=== PATIENT | male | born 1950 | race American Indian/Alaskan Native ===

== ENCOUNTER 2019-01-21 23:57 | Emergency (ER) | payer MEDICARE ==
[2019-01-22] MEDS ORDERED: KETOROLAC 30 MG/1 ML INJ IM ONE (02:27)
[2019-01-22] MEDS ORDERED: DEXAMETHASONE 4 MG TAB PO ONE (02:27)
--- NOTE | 2019-01-22 02:32 | Emergency Department Report ---
ED General Adult HPI - General Chief complaint: Extremity Problem,Nontraumatic Stated complaint: LEFT KNEE PAIN Time Seen by Provider: 01/22/19 01:46 Source: patient Mode of arrival: Ambulatory Limitations: No Limitations - History of Present Illness Initial comments: 68-year-old -Polish male patient with history of hypertension complains of left knee pain 1 week. He denies any injury. He rates his pain as a 7/10 in severity and states it worsens with ambulation and bending the knee. Patient states he was recently diagnosed with gout one month ago when he had left toe pain. He states the knee is swollen and feels hot. Denies any fever/chills/sweats or history of cancer. - Related Data Allergies Allergy/AdvReac Type Severity Reaction Status Date / Time lisinopril Allergy Hives Verified 01/22/19 00:15 ED Review of Systems ROS: Stated complaint: LEFT KNEE PAIN Other details as noted in HPI ED Past Medical Hx - Past Medical History Previous Medical History?: Yes Hx Hypertension: Yes Hx Heart Attack/AMI: Yes (cardiax stents x2?) Hx Seizures: Yes Additional medical history: gout - Surgical History Past Surgical History?: No - Social History Smoking Status: Never Smoker ED Physical Exam - General Limitations: No Limitations ED Course Vital Signs 01/22/19 01/22/19 00:05 00:06 Temperature 97 F L 97.9 F Pulse Rate 140 H 139 H Respiratory 18 18 Rate Blood Pressure 119/91 119/91 O2 Sat by Pulse 100 96 Oximetry Critical care attestation.: If time is entered above; I have spent that time in minutes in the direct care of this critically ill patient, excluding procedure time. ED Disposition Condition: Stable
--- NOTE | 2019-01-22 03:02 | XRay Report ---
CHEST 2 VIEWS INDICATION / CLINICAL INFORMATION: Tachycardia. History of hypertension. COMPARISON: None available. FINDINGS: SUPPORT DEVICES: None. HEART / MEDIASTINUM: No significant abnormality. LUNGS / PLEURA: No significant pulmonary or pleural abnormality. No pneumothorax. ADDITIONAL FINDINGS: No significant additional findings. IMPRESSION: 1. No acute abnormality of the chest. Signer Name: Iván Mace MD Signed: 01/22/2019 2:57 AM Workstation Name: [id number]
--- NOTE | 2019-01-22 03:03 | XRay Report ---
LEFT KNEE 3 VIEWS INDICATION / CLINICAL INFORMATION: Medial left knee pain without a known injury. History of gout. COMPARISON: None available. FINDINGS: BONES and JOINT(S): No acute fracture or subluxation. There is mild to moderate tricompartmental oste oarthritis. SOFT TISSUES: No acute abnormality. There is mild popliteal atherosclerosis. ADDITIONAL FINDINGS: None. IMPRESSION: 1. No acute findings. 2. Mild to moderate osteoarthritis. Signer Name: Iván Mace MD Signed: 01/22/2019 2:59 AM Workstation Name: [email or web address]
[2019-01-22 03:19] LABS: Basophils % (Auto) 0.4 % (0.0-1.8); Eosinophils # (Auto) 0.2 K/mm3 (0.0-0.4); Eosinophils % (Auto) 3.9 % (0.0-4.3); Lymphocytes # (Auto) 0.8 K/mm3 (1.2-5.4); Lymphocytes % (Auto) 14.8 % (13.4-35.0); Mean Corpuscular HGB Conc 36 % (32-34); Mean Corpuscular Volume 90 fl (84-94); Monocytes # (Auto) 0.6 K/mm3 (0.0-0.8); Monocytes % (Auto) 10.7 % (0.0-7.3); Platelet Count 244 K/mm3 (140-440); Red Blood Count 4.69 M/mm3 (3.65-5.03); Red Cell Distribution Width 15.1 % (13.2-15.2)
[2019-01-22 03:43] LABS: Alanine Aminotransferase 18 units/L (7-56); Albumin 4.2 g/dL (3.9-5); BUN/Creatinine Ratio 12; Blood Urea Nitrogen 14 mg/dL (9-20); Calcium 8.8 mg/dL (8.4-10.2); Hemolysis Index 7
--- NOTE | 2019-01-22 06:51 | Emergency Department Report ---
ED General Adult HPI - General Chief complaint: Extremity Problem,Nontraumatic Stated complaint: LEFT KNEE PAIN Time Seen by Provider: 01/22/19 01:46 Source: patient, RN notes reviewed Mode of arrival: Ambulatory Limitations: No Limitations - History of Present Illness Initial comments: Primary care Dr.: Dr. Mancilla Cardiology: [facility] Past medical history: Hypertension, heart disease with stent, question A. fib, on anticoagulation The patient is a 68-year-old gentleman. He is not known to this provider previously. He presents the ER today with a complaint of nontraumatic left sided knee pain. The pain is aching and throbbing. His primary care doctor prescribed him prednisone recently. The pain increases with palpation and decreases with rest. It does not radiate anywhere. He makes no complaint of headache, neck pain, chest pain, abdominal pain, shortness of breath. The patient indicates she's been compliant with his medications. He denies hematemesis and bright red blood per rectum. He denies additional complaints. -: Gradual, days(s) Location: left, lower extremity Radiation: non-radiation Severity scale (0 -10): 5 Quality: aching Improves with: other Worsens with: other - Related Data Home Medications Medication Instructions Recorded Confirmed Last Taken Aspirin [Aspirin BABY CHEW TAB] 81 mg PO QDAY 01/22/19 01/22/19 Unknown AtorvaSTATin [Lipitor] 20 mg PO QHS 01/22/19 01/22/19 Unknown Digoxin [Lanoxin] 125 mcg PO DAILY 01/22/19 01/22/19 1 Day Ago ~01/21/19 Folic Acid 1 tab PO QDAY 01/22/19 01/22/19 Unknown Levocetirizine Dihydrochloride 5 mg PO DAILY 01/22/19 01/22/19 1 Day Ago [Xyzal] ~01/21/19 Losartan Potassium 50 mg PO QDAY 01/22/19 01/22/19 01/21/19 Pantoprazole [Protonix] 40 mg PO QDAY 01/22/19 01/22/19 1 Day Ago ~01/21/19 Sertraline [Zoloft] 100 mg PO QDAY 01/22/19 01/22/19 Unknown Sertraline [Zoloft] 100 mg PO QDAY 01/22/19 01/22/19 1 Day Ago ~01/21/19 Warfarin [Coumadin] 5 mg PO QDAY 01/22/19 01/22/19 Unknown carvediloL [Coreg] 25 mg PO BID 01/22/19 01/22/19 Unknown levETIRAcetam [Keppra TAB] 500 mg PO BID 01/22/19 01/22/19 1 Day Ago ~01/21/19 Allergies Allergy/AdvReac Type Severity Reaction Status Date / Time lisinopril Allergy Hives Verified 01/22/19 00:15 ED Review of Systems ROS: Stated complaint: LEFT KNEE PAIN Other details as noted in HPI Constitutional: denies: fever ENT: denies: congestion Respiratory: denies: wheezing Cardiovascular: denies: chest pain, syncope Gastrointestinal: denies: abdominal pain, nausea, vomiting Genitourinary: denies: dysuria Musculoskeletal: arthralgia, myalgia Skin: denies: lesions Neurological: denies: weakness Hematological/Lymphatic: denies: easy bleeding ED Past Medical Hx - Past Medical History Previous Medical History?: Yes Hx Hypertension: Yes Hx Heart Attack/AMI: Yes (cardiax stents x2?) Hx Seizures: Yes Additional medical history: gout - Surgical History Past Surgical History?: No - Social History Smoking Status: Never Smoker - Medications Home Medications: Home Medications Medication Instructions Recorded Confirmed Last Taken Type Aspirin [Aspirin BABY CHEW TAB] 81 mg PO QDAY 01/22/19 01/22/19 Unknown History AtorvaSTATin [Lipitor] 20 mg PO QHS 01/22/19 01/22/19 Unknown History Digoxin [Lanoxin] 125 mcg PO DAILY 01/22/19 01/22/19 1 Day Ago History ~01/21/19 Folic Acid 1 tab PO QDAY 01/22/19 01/22/19 Unknown History Levocetirizine Dihydrochloride 5 mg PO DAILY 01/22/19 01/22/19 1 Day Ago History [Xyzal] ~01/21/19 Losartan Potassium 50 mg PO QDAY 01/22/19 01/22/19 01/21/19 History Pantoprazole [Protonix] 40 mg PO QDAY 01/22/19 01/22/19 1 Day Ago History ~01/21/19 Sertraline [Zoloft] 100 mg PO QDAY 01/22/19 01/22/19 Unknown History Sertraline [Zoloft] 100 mg PO QDAY 01/22/19 01/22/19 1 Day Ago History ~01/21/19 Warfarin [Coumadin] 5 mg PO QDAY 01/22/19 01/22/19 Unknown History carvediloL [Coreg] 25 mg PO BID 01/22/19 01/22/19 Unknown History levETIRAcetam [Keppra TAB] 500 mg PO BID 01/22/19 01/22/19 1 Day Ago History ~01/21/19 ED Physical Exam - General Limitations: No Limitations General appearance: alert, in no apparent distress, obese - Head Head exam: Present: atraumatic, normocephalic - Eye Eye exam: Present: normal appearance, EOMI. Absent: nystagmus - ENT ENT exam: Present: normal exam, normal orophraynx, mucous membranes moist, normal external ear exam - Neck Neck exam: Present: normal inspection, full ROM. Absent: tenderness, meningismus - Respiratory Respiratory exam: Present: normal lung sounds bilaterally. Absent: respiratory distress - Cardiovascular Cardiovascular Exam: Present: tachycardia, normal heart sounds. Absent: normal rhythm, bradycardia, systolic murmur, diastolic murmur, rubs, gallop - GI/Abdominal GI/Abdominal exam: Present: soft. Absent: distended, tenderness, guarding, r ebound, rigid, pulsatile mass - Rectal Rectal exam: Present: deferred - Extremities Exam Extremities exam: Present: normal inspection, full ROM, other (2+ pulses noted in the bilateral upper and lower extremities. There is no palpable cord. negative Homans sign. Muscular compartments are soft. The pelvis is stable.). Absent: pedal edema, calf tenderness - Back Exam Back exam: Present: normal inspection. Absent: tenderness, CVA tenderness (R), CVA tenderness (L), paraspinal tenderness, vertebral tenderness - Neurological Exam Neurological exam: Present: alert, other (there is no facial droop. The tongue is midline. Extraocular movements are intact bilaterally. There is 5/5 strength bilateral upper and lower extremities. Sensation is intact to light touch bilateral upper and lower extremities. The patient is speaking in full sentences.). Absent: motor sensory deficit - Psychiatric Psychiatric exam: Present: anxious - Skin Skin exam: Present: warm, dry, intact, normal color. Absent: rash ED Course Vital Signs 01/22/19 01/22/19 01/22/19 00:05 00:06 02:37 Temperature 97 F L 97.9 F Pulse Rate 140 H 139 H Respiratory 18 18 18 Rate Blood Pressure 119/91 119/91 Blood Pressure [Right] O2 Sat by Pulse 100 96 Oximetry 01/22/19 01/22/19 01/22/19 02:41 04:15 05:36 Temperature Pulse Rate 135 H 133 H 132 H Respiratory 18 18 16 Rate Blood Pressure 136/96 Blood Pressure 149/105 [Right] O2 Sat by Pulse 97 96 96 Oximetry 01/22/19 01/22/19 01/22/19 07:05 08:10 08:33 Temperature 98.6 F Pulse Rate 133 H 133 H 95 H Respiratory 15 16 Rate Blood Pressure Blood Pressure 150/101 118/82 [Right] O2 Sat by Pulse 97 97 Oximetry 01/22/19 09:11 Temperature Pulse Rate 132 H Respiratory Rate Blood Pressure Blood Pressure [Right] O2 Sat by Pulse Oximetry - Reevaluation(s) Reevaluation #1: 01/22/19 08:13 Differential diagnosis, including but not limited to: Left knee arthritis, musculoskeletal pain, incidental tachycardia; atrial tachycardia versus flutter with 2-1 conduction Assessment and plan: 68-year-old gentleman isolated complaint of nontraumatic left sided knee pain, appears to be arthritic in nature. He is found to be tachycardic upon presentation. His EKG shows an irregularly regular rhythm, but is tachycardic, persistently in the low 130s rate-lopez, suspect atrial tachycardia versus a flutter with 2:1 block. Laboratory studies are reviewed and appreciated. We will discuss with cardiology, and will likely administer empiric dose of diltiazem for rate control. We will reassess. Reevaluation #2: 01/22/19 08:15 Patient given steroids and Toradol prior to my personal evaluation. Reevaluation #3: 01/22/19 09:19 Repeat EKG suggests a flutter, 2-1 conduction, without evidence of ST elevation myocardial infarction. Initial rhythm strip and EKG transmitted to our consulting truss puller helper, Dr. Craft, who advises that rhythm is most likely flutter with 2:1 conduction, as initially suspected. Patient given 20 mg of diltiazem, heart rate temporarily slowed down, and then went back up, given an additional 30 mg of diltiazem, now, heart rate in the 70s, flutter, with variable conduction. He is in no acute distress at this time. He reports a chronic history of flutter/fib and is on therapeutic anticoagulation. Weightbearing as tolerated for left knee pain. He will need to follow up with his outpatient primary care doctor or truss puller helper for his chronic rhythm issues. He is resting comfortably at this time and in no acute distress. He is suitable for discharge. Reevaluation #4: 01/22/19 09:23 Please note that a troponin was sent prior to my personal evaluation. He suffered the current history and physical, do not suspect acute coronary syndrome, and I personally would not have initiated an ACS risk stratification. He can follow up with his outpatient primary care doctor or truss puller helper. In addition, the decision to administer intramuscular ketorolac was made before I personally evaluated the patient, and before I arrived to start my shift in the emergency room. This decision was not specifically discussed with me ED Medical Decision Making - Lab Data Result diagrams: 01/22/19 02:51 01/22/19 02:51 Vital Signs 01/22/19 01/22/19 01/22/19 00:05 00:06 02:37 Temperature 97 F L 97.9 F Pulse Rate 140 H 139 H Respiratory 18 18 18 Rate Blood Pressure 119/91 119/91 Blood Pressure [Right] O2 Sat by Pulse 100 96 Oximetry 01/22/19 01/22/19 01/22/19 02:41 04:15 05:36 Temperature Pulse Rate 135 H 133 H 132 H Respiratory 18 18 16 Rate Blood Pressure 136/96 Blood Pressure 149/105 [Right] O2 Sat by Pulse 97 96 96 Oximetry Lab Results 01/22/19 01/22/19 01/22/19 Range/Units 02:51 02:51 02:51 WBC 5.2 (4.5-11.0) K/mm3 RBC 4.69 (3.65-5.03) M/mm3 Hgb 15.0 (11.8-15.2) gm/dl Hct 42.0 (35.5-45.6) % MCV 90 (84-94) fl MCH 32 (28-32) pg MCHC 36 H (32-34) % RDW 15.1 (13.2-15.2) % Plt Count 244 (140-440) K/mm3 Lymph % (Auto) 14.8 (13.4-35.0) % Nicholas % (Auto) 10.7 H (0.0-7.3) % Eos % (Auto) 3.9 (0.0-4.3) % Baso % (Auto) 0.4 (0.0-1.8) % Lymph # 0.8 L (1.2-5.4) K/mm3 Nicholas # 0.6 (0.0-0.8) K/mm3 Eos # 0.2 (0.0-0.4) K/mm3 Baso # 0.0 (0.0-0.1) K/mm3 Seg Neutrophils % 70.2 H (40.0-70.0) % Seg Neutrophils # 3.7 (1.8-7.7) K/mm3 PT (12.2-14.9) Sec. INR (0.87-1.13) APTT (24.2-36.6) Sec. Sodium 139 (137-145) mmol/L Potassium 4.3 (3.6-5.0) mmol/L Chloride 97.7 L (98-107) mmol/L Carbon Dioxide 22 (22-30) mmol/L Anion Gap 24 mmol/L BUN 14 (9-20) mg/dL Creatinine 1.2 (0.8-1.5) mg/dL Estimated GFR > 60 ml/min BUN/Creatinine Ratio 12 % Glucose 115 H (75-100) mg/dL Calcium 8.8 (8.4-10.2) mg/dL Magnesium 1.60 L (1.7-2.3) mg/dL Total Bilirubin 0.70 (0.1-1.2) mg/dL AST 21 (5-40) units/L ALT 18 (7-56) units/L Alkaline Phosphatase 123 (35-129) units/L Total Creatine Kinase 235 H (55-170) units/L Troponin T < 0.010 (0.00-0.029) ng/mL Total Protein 7.9 (6.3-8.2) g/dL Albumin 4.2 (3.9-5) g/dL Albumin/Globulin Ratio 1.1 % TSH (0.270-4.200) mlU/mL Free T4 (0.76-1.46) ng/dL Digoxin (0.9-2.0) ng/mL 01/22/19 01/22/19 01/22/19 Range/Units 06:55 06:55 06:55 WBC (4.5-11.0) K/mm3 RBC (3.65-5.03) M/mm3 Hgb (11.8-15.2) gm/dl Hct (35.5-45.6) % MCV (84-94) fl MCH (28-32) pg MCHC (32-34) % RDW (13.2-15.2) % Plt Count (140-440) K/mm3 Lymph % (Auto) (13.4-35.0) % Nicholas % (Auto) (0.0-7.3) % Eos % (Auto) (0.0-4.3) % Baso % (Auto) (0.0-1.8) % Lymph # (1.2-5.4) K/mm3 Nicholas # (0.0-0.8) K/mm3 Eos # (0.0-0.4) K/mm3 Baso # (0.0-0.1) K/mm3 Seg Neutrophils % (40.0-70.0) % Seg Neutrophils # (1.8-7.7) K/mm3 PT 26.2 H (12.2-14.9) Sec. INR 2.46 H (0.87-1.13) APTT 36.4 (24.2-36.6) Sec. Sodium (137-145) mmol/L Potassium (3.6-5.0) mmol/L Chloride (98-107) mmol/L Carbon Dioxide (22-30) mmol/L Anion Gap mmol/L BUN (9-20) mg/dL Creatinine (0.8-1.5) mg/dL Estimated GFR ml/min BUN/Creatinine Ratio % Glucose (75-100) mg/dL Calcium (8.4-10.2) mg/dL Magnesium (1.7-2.3) mg/dL Total Bilirubin (0.1-1.2) mg/dL AST (5-40) units/L ALT (7-56) units/L Alkaline Phosphatase (35-129) units/L Total Creatine Kinase (55-170) units/L Troponin T (0.00-0.029) ng/mL Total Protein (6.3-8.2) g/dL Albumin (3.9-5) g/dL Albumin/Globulin Ratio % TSH 4.040 (0.270-4.200) mlU/mL Free T4 1.44 (0.76-1.46) ng/dL Digoxin (0.9-2.0) ng/mL 01/22/19 Range/Units 06:55 WBC (4.5-11.0) K/mm3 RBC (3.65-5.03) M/mm3 Hgb (11.8-15.2) gm/dl Hct (35.5-45.6) % MCV (84-94) fl MCH (28-32) pg MCHC (32-34) % RDW (13.2-15.2) % Plt Count (140-440) K/mm3 Lymph % (Auto) (13.4-35.0) % Nicholas % (Auto) (0.0-7.3) % Eos % (Auto) (0.0-4.3) % Baso % (Auto) (0.0-1.8) % Lymph # (1.2-5.4) K/mm3 Nicholas # (0.0-0.8) K/mm3 Eos # (0.0-0.4) K/mm3 Baso # (0.0-0.1) K/mm3 Seg Neutrophils % (40.0-70.0) % Seg Neutrophils # (1.8-7.7) K/mm3 PT (12.2-14.9) Sec. INR (0.87-1.13) APTT (24.2-36.6) Sec. Sodium (137-145) mmol/L Potassium (3.6-5.0) mmol/L Chloride (98-107) mmol/L Carbon Dioxide (22-30) mmol/L Anion Gap mmol/L BUN (9-20) mg/dL Creatinine (0.8-1.5) mg/dL Estimated GFR ml/min BUN/Creatinine Ratio % Glucose (75-100) mg/dL Calcium (8.4-10.2) mg/dL Magnesium (1.7-2.3) mg/dL Total Bilirubin (0.1-1.2) mg/dL AST (5-40) units/L ALT (7-56) units/L Alkaline Phosphatase (35-129) units/L Total Creatine Kinase (55-170) units/L Troponin T (0.00-0.029) ng/mL Total Protein (6.3-8.2) g/dL Albumin (3.9-5) g/dL Albumin/Globulin Ratio % TSH (0.270-4.200) mlU/mL Free T4 (0.76-1.46) ng/dL Digoxin 0.6 L (0.9-2.0) ng/mL - EKG Data -: EKG Interpreted by Nc Rate: tachycardia - EKG Data When compared to previous EKG there are: previous EKG unavailable 01/22/19 08:11 The EKG shows a tachycardic rhythm, appears to be irregularly irregular, there is a borderline leftward axis deviation, the QTC is 462 ms, there is borderline atrial enlargements, the rhythm appears to be atrial tachycardia versus a flutter with 2-1 conduction. It is not consistent with ST elevation myocardial infarction. - Radiology Data Radiology results: report reviewed, image reviewed X-ray the chest is negative for acute disease. X-ray of the knee is negative for acute disease. Critical Care Time: Yes Critical care time in (mins) excluding proc time.: 35 Critical care attestation.: If time is entered above; I have spent that time in minutes in the direct care of this critically ill patient, excluding procedure time. ED Disposition Clinical Impression: Left knee pain Qualifiers: Chronicity: chronic Qualified Code(s): M25.562 - Pain in left knee; G89.29 - Other chronic pain Atrial flutter Qualifiers: Atrial flutter type: unspecified Qualified Code(s): I48.92 - Unspecified atrial flutter Disposition: DC- TO HOME OR SELFCARE Is pt being admited?: No Does the pt Need Aspirin: No Condition: Stable Additional Instructions: Weightbearing as tolerated and physical activities as tolerated. Follow up with a primary care doctor or truss puller helper for atrial flutter within the next week. Patient may take Tylenol, 650 mg [id number], every 4-6 hours as needed for pain. For the time being, patient should avoid Motrin, ibuprofen, Naprosyn, Aleve. Please continue current outpatient medications. Patient may benefit from outpatient acupuncture, massage, and physical therapy. He should follow up with his primary care doctor for further evaluation for physical therapy for left knee pain, and a follow-up at his own discretion for massage and/or acupuncture. Please return to the emergency room right away with new, worse or different symptoms, or symptoms not present on the initial emergency room evaluation. Patient was found to have a slightly decreased magnesium level today, therefore, he should follow up with his outpatient primary care doctor or truss puller helper to have his magnesium level rechecked. Referrals: SHADIA MANCILLA [Other] - 3-5 Days REAL CRAFT MD [Staff Physician] - 3-5 Days
[2019-01-22 07:19] LABS: INR 2.46 (0.87-1.13); Partial Thromboplastin Time 36.4 Sec. (24.2-36.6)
[2019-01-22] MEDS ORDERED: MAGNESIUM SULFATE 2 GM/50 ML BAG IV ONE (07:46)
[2019-01-22] MEDS ORDERED: dilTIAZem 25 MG/5 ML INJ IV ONE ×2 (08:01→08:52)
[2019-01-22 10:36] VITALS: BP 121/70
== END 2019-01-22 10:36 | disposition home or self-care (01) ==
LOC: ED 23:57
DX: M25.562 Pain in left knee (principal); I48.92 Unspecified atrial flutter; I10 Essential (primary) hypertension; I21.9 Acute myocardial infarction, unspecified; G43.909 Migraine, unspecified, not intractable, without status migrainosus; Z79.899 Other long term (current) drug therapy; Z88.8 Allergy status to other drugs, medicaments and biological substances
CPT/HCPCS: 36415; 71046; 73562; 80053; 80162; 82550; 83735; 84439; 84443; 84484; 85025; 85610; 85730; 93005; 93010; 96365; 96372; 96375; 96376; 99291; J1885; J3475; J8540